=== PATIENT | male | born 1945 | race Caucasian/White ===

== ENCOUNTER → 2019-12-02 | Outpatient (CLI) | payer OTHER ==
[~2019-12-02] MED LIST: LIPITOR40 MG PO; LOSARTAN POTASS1 TA2 PO; METOPROLOL SR100 MG PO; SYNTHROID0.15 MG PO
== END | disposition home or self-care (01) ==
LOC: US 07:04
DX: I10 Essential (primary) hypertension (principal); Z72.0 Tobacco use